=== PATIENT | female | born 1940 | race Caucasian/White ===

== ENCOUNTER 2017-05-14 23:12 | Observation (INO) | payer MEDICARE ==
[~2017-05-14] VITALS: Ht 162.6 cm; Wt 52.2 kg
[2017-05-14 23:44] LABS: BASOPHILS # (AUTO) 0.1 (0.0-0.1); BASOPHILS % 0.6 % (0.0-1.0); EOSINOPHILS # (AUTO) 0.1 (0.0-0.4); EOSINOPHILS % 0.8 % (0.0-6.0); HEMATOCRIT 38.7 % (34.2-44.1); HEMOGLOBIN 12.9 g/dL (12.0-16.0); LYMPHOCYTES % 23.4 % (18.0-39.1); MEAN CORPUSCULAR HEMOGLOBIN 29.7 pg (28-32); MEAN CORPUSCULAR HGB CONC 33.3 g/dL (31-35); MEAN CORPUSCULAR VOLUME 89.2 fL (81-99); MONOCYTES # (AUTO) 0.8 (0.2-0.8); NEUTROPHILS # (AUTO) 5.5 (2.1-6.9); NEUTROPHILS % 65.5 % (38.7-80.0); PLATELET COUNT 269 x10e3/uL (140-360); RED BLOOD COUNT 4.34 x10e6/uL (3.6-5.1); RED CELL DISTRIBUTION WIDTH 13.4 % (11.7-14.4)
[2017-05-14 23:45] LABS: BILIRUBIN,URINE NEGATIVE (NEGATIVE); CLARITY,URINE CLOUDY (CLEAR); COLOR,URINE YELLOW (YELLOW); KETONES,URINE NEGATIVE (NEGATIVE); LEUKOCYTE ESTERASE ,URINE 2+ (NEGATIVE); PROTEIN,URINE DIPSTICK NEGATIVE (NEGATIVE); URINE UROBILINOGEN 0.2 mg/dL (0.2 - 1)
[2017-05-14 23:47] LABS: NITRITE,URINE POSITIVE (NEGATIVE)
[2017-05-14 23:55] LABS: BACTERIA,URINE MANY /HPF; EPITHELIAL CELLS,URINE FEW /LPF; WBC,URINE (MAN) >50 /HPF (0-5)
[2017-05-14 23:59] LABS: ALANINE AMINOTRANSFERASE 16 IU/L (0-55); ALBUMIN 3.8 g/dL (3.5-5.0); ALBUMIN/GLOBULIN RATIO 0.9 (0.8-2.0); ALKALINE PHOSPHATASE 90 IU/L (40-150); AMYLASE 49 U/L (25-125); ANION GAP 14.4 mmol/L (8-16); BLOOD UREA NITROGEN 13 mg/dL (7-26); BUN/CREATININE RATIO 16 (6-25); CALCIUM 9.7 mg/dL (8.4-10.2); CARBON DIOXIDE 22 mmol/L (22-29); CHLORIDE 100 mmol/L (98-107); CREATININE, SERUM 0.82 mg/dL (0.57-1.11); EST GLOMERULAR FILTRATION RATE > 60 ML/MIN (60-); GLUCOSE 100 mg/dL (74-118); LIPASE 44 U/L (8-78); POTASSIUM 3.4 mmol/L (3.5-5.1); SODIUM 133 mmol/L (136-145)
[2017-05-15] MEDS ORDERED: MORPHINE SULFATE 2 MG/ML SYR IV STA (00:41)
[2017-05-15] MEDS ORDERED: ONDANSETRON HCL INJ 2 MG/ML VIAL IV STA (00:41)
--- NOTE | 2017-05-15 02:35 | Diagnostic Imaging Report ---
EXAM: CT ABDOMEN/PELVIS W DATE: 05/15/2017 12:41 AM INDICATION: Metastatic breast cancer, right upper quadrant pain COMPARISON: None TECHNIQUE: The abdomen and pelvis were scanned using a multidetector helical scanner. Coronal and sagittal reformations were obtained. Routine protocol performed. IV Contrast: 100 ml Isovue 370 FINDINGS: LOWER THORAX: Innumerable bilateral pulmonary nodules visualized lung bases, the largest 1.9 cm in the left lower lobe. LIVER/BILIARY: No masses. No ductal dilatation. GALLBLADDER: Unremarkable SPLEEN: Unremarkable PANCREAS: Unremarkable ADRENALS: No nodules KIDNEYS: Symmetric perfusion. No enhancing masses. No hydronephrosis. GI TRACT: No distention, wall thickening or evidence of obstruction. Appendix is not clearly seen, but there is no evidence of acute appendicitis. VESSELS: Moderate atherosclerotic changes. PERITONEUM/RETROPERITONEUM: No free air or fluid LYMPH NODES: No lymphadenopathy REPRODUCTIVE ORGANS/BLADDER: Unremarkable BONES: Bilateral L5 pars defects with grade 1 anterior listhesis of L5 over S1. Patchy sclerotic lesions of L3, L2, visualized T10, posterior vertebral body/elements of T12, T11, L4.. Mild dural enhancement within the lumbar and thoracic spinal canal (image 32, image 2). IMPRESSION: 1. Innumerable bilateral visualized pulmonary metastases and osseous metastases. 2. Dural enhancement within the spinal canal suspicious for metastatic disease/meningeal spread. Correlate with lumbar puncture. 3. No acute abnormality of the abdomen or pelvis to explain symptoms Signed by: Dr Jacqueline Dorman MD on 05/15/2017 2:31 AM
[2017-05-15] MEDS ORDERED: CEFTRIAXONE SOD 1 GM VIAL IM ONE (03:00)
[2017-05-15] MEDS ORDERED: METOPROLOL SUCC50 MG PO (03:01)
[2017-05-15] MEDS ORDERED: MORPHINE SULFATE 2 MG/ML SYR IV PRN (04:15)
[2017-05-15] MEDS: CEFTRIAXONE SOD 1 GM VIAL IV SCH (04:28)
[2017-05-15] MEDS: D5.45%NS/KCL 20MEQ 1,000 ML IV SCH ×2 (04:56→17:25)
[2017-05-15 05:16] VITALS: BP 139/64
[2017-05-15 05:55] VITALS: BP 139/64
[2017-05-15 07:45] VITALS: BP 114/67
--- NOTE | 2017-05-15 10:35 | Diagnostic Imaging Report ---
PROCEDURE:US GALLBLADDER COMPARISON:None. INDICATIONS:RUQ Pain TECHNIQUE: Leslie-scale and color doppler transverse and longitudinal images of the right upper quadrant of the abdomen were obtained. FINDINGS: Liver: Measures 12.7 cm in right mid-clavicular line. Normal echogenicity. No masses. Main portal vein: Measures 9 mm with normal forward flow. Gallbladder: Gallbladder is small in size with echogenic sludge. No wall thickening with the wall measuring 2 mm. Common Bile Duct: Measures 0.3 cm Sonographic Bradshaw's sign: Negative Right kidney: Measures 10.7 x 3.2 x 4.4 cm. Normal echogenicity. No solid masses or hydronephrosis. Pancreas: The visualized portions are unremarkable. Inferior vena cava: Patent Aorta: Atherosclerotic calcification. Ascites: None in the right upper quadrant of the abdomen. CONCLUSION: Small sized gallbladder with biliary sludge. Pavan Thibodeaux D.O. Dictated by: Pavan Thibodeaux D.O. on 05/15/2017 at 10:43 Electronically approved by: Pavan Thibodeaux D.O. on 05/15/2017 at 10:43
[2017-05-15 11:39] VITALS: BP 118/58
[2017-05-15] MEDS ORDERED: SINCALIDE 3 MCG/VIAL INJ ONE (11:50)
[2017-05-15] MEDS ORDERED: POTASSIUM CHLORIDE 20 MEQ TAB CR PO STA (11:55)
[2017-05-15] MEDS: ONDANSETRON HCL INJ 2 MG/ML VIAL IV PRN (13:30)
[2017-05-15 15:24] VITALS: BP 138/73
--- NOTE | 2017-05-15 17:12 | Diagnostic Imaging Report ---
HIDA Scan with Morphine Augmentation Clinical information: 77 F with acute RUQ pain Report: Following the administration of 4.8 of Tc-99m mebrofenin, dynamic images of the abdomen in the anterior projection were obtained through 60 minutes. Morphine sulfate 4 mg was administered via slow IV push and additional images were obtained through 30 minutes. Perfusion to the liver is normal. Extraction of tracer by the liver parenchyma is normal. Tracer appears promptly within the biliary tract. Tracer is seen within the small bowel by 15 minutes. The gallbladder does not fill during the initial 60 minutes of dynamic imaging. Following administration of morphine, the gallbladder also does not fill. Impression: Abnormal hepatobiliary scan 1. Absence of filling of the gallbladder, even following administration of morphine, is compatible with the diagnosis of acute cystic duct obstruction/acute cholecystitis. Signed by: Dr. Sumi Jack M.D. on 05/15/2017 5:08 PM
[2017-05-15] MEDS ORDERED: ACETAMINOPHEN 325 MG TAB PO PRN (17:15)
[2017-05-15] MEDS ORDERED: IOPAMIDOL 370 MG/ML 200 ML INFUS..BTL INJ ONE (17:36)
[2017-05-15] MEDS ORDERED: SODIUM CHLORIDE 0.9% 50ML 50 ML ONE (17:36)
--- NOTE | 2017-05-15 17:54 | History and Physical ---
HISTORY OF PRESENT ILLNESS: She is a 77-year-old female who has past medical history positive for right breast cancer with metastatic lesions in lungs and spine. Status post right mastoidectomy. She underwent chemotherapy and radiation therapy and declared cancer free in 2008. Came here with right upper quadrant pain. She was found to have acute cholecystitis on the HIDA scan. We requested a consult with Dr. Kelechi Mueller for further evaluation and possibility of surgery. REVIEW OF SYSTEMS: CARDIOVASCULAR: No chest pain or palpitation. RESPIRATORY: No shortness of breath and no cough. GASTROINTESTINAL: She has nausea, right upper quadrant pain. No vomiting, no diarrhea. GENITOURINARY: No frequency or dysuria. ALLERGIES: SHE CLAIMS THAT SHE IS NOT ALLERGIC TO ANY MEDICATIONS. SOCIAL HISTORY: She does not smoke and she does not drink. PAST MEDICAL HISTORY: Positive for right breast cancer who is status mastoidectomy with metastatic lesions in lungs and spine. Hypokalemia. Hypertension. Hyponatremia. PLAN OF TREATMENT: Continue IV fluids. Continue with surgical evaluation for possibility of surgical removal of the gallbladder. Abdominal ultrasound showed small size gallbladder with biliary sludge. The blood work showed BMP: Sodium 133, potassium 3.4, chloride 100. CO2 22. BUN 13, creatinine 0.82, glucose 100. CBC: White blood count 8.36, hemoglobin 12.9, hematocrit 38.7, platelet count 269,000. AST 16, total bilirubin 0.4, alkaline phosphatase 90. We are going to continue with the IV fluids country. Replace the potassium. Continue ceftriaxone 1 gram IV piggyback once a day. Morphine 4 mg IV q.4 h. Zofran 4 mg IV q.8 h. As I said, we are going to wait for surgical opinion from Dr. Mueller and also oncology consult with Dr. Longoria. Job#: [id number]
[2017-05-15 20:00] VITALS: BP 135/78
[2017-05-16] VITALS: BP 149/65
[2017-05-16] MEDS: ONDANSETRON HCL INJ 2 MG/ML VIAL IV PRN (01:10)
[2017-05-16 04:00] VITALS: BP 136/80
[2017-05-16] MEDS: CEFTRIAXONE SOD 1 GM VIAL IV SCH (05:32)
[2017-05-16] MEDS: D5.45%NS/KCL 20MEQ 1,000 ML IV SCH (05:32)
[2017-05-16 06:27] LABS: BASOPHILS % 0.3 % (0.0-1.0); EOSINOPHILS % 0.3 % (0.0-6.0); HEMATOCRIT 36.8 % (34.2-44.1); HEMOGLOBIN 12.4 g/dL (12.0-16.0); LYMPHOCYTES # (AUTO) 1.6 (1.0-3.2); LYMPHOCYTES % 21.6 % (18.0-39.1); MEAN CORPUSCULAR HEMOGLOBIN 29.8 pg (28-32); MEAN CORPUSCULAR HGB CONC 33.7 g/dL (31-35); MEAN CORPUSCULAR VOLUME 88.5 fL (81-99); MONOCYTES # (AUTO) 0.7 (0.2-0.8); MONOCYTES % 9.6 % (4.4-11.3); NEUTROPHILS % 67.8 % (38.7-80.0); PLATELET COUNT 248 x10e3/uL (140-360); RED BLOOD COUNT 4.16 x10e6/uL (3.6-5.1); RED CELL DISTRIBUTION WIDTH 13.3 % (11.7-14.4)
[2017-05-16 06:56] LABS: ALANINE AMINOTRANSFERASE 14 IU/L (0-55); ALBUMIN 3.1 g/dL (3.5-5.0); ALBUMIN/GLOBULIN RATIO 0.8 (0.8-2.0); ALKALINE PHOSPHATASE 87 IU/L (40-150); ANION GAP 12.5 mmol/L (8-16); BLOOD UREA NITROGEN 8 mg/dL (7-26); BUN/CREATININE RATIO 10 (6-25); CALCIUM 9.4 mg/dL (8.4-10.2); CARBON DIOXIDE 23 mmol/L (22-29); CHLORIDE 107 mmol/L (98-107); CREATININE, SERUM 0.78 mg/dL (0.57-1.11); EST GLOMERULAR FILTRATION RATE > 60 ML/MIN (60-); GLUCOSE 135 mg/dL (74-118); POTASSIUM 4.5 mmol/L (3.5-5.1); SODIUM 138 mmol/L (136-145)
[2017-05-16 08:22] VITALS: BP 134/67
[2017-05-16] MEDS ORDERED: METOPROLOL SUCCINATE 50 MG TAB XL PO SCH (09:00)
[2017-05-16] MEDS ORDERED: MORPHINE SULFATE 5 MG/ML VIAL IV PRN (10:45)
[2017-05-16] MEDS ORDERED: METRONIDAZOLE 500MG/NS 100ML 100 ML IV SCH (14:00)
--- NOTE | 2017-05-16 21:07 | Discharge Summary ---
HISTORY OF PRESENT ILLNESS: A 77-year-old female with past medical history positive for breast cancer and multiple metastatic lesions in the spine and the lungs. Came here with right upper quadrant pain. She was found to have acute cholecystitis diagnosed on a HIDA scan and patient was referred to Dr. Kelechi Mueller for surgery. She was placed n.p.o. after midnight. The patient is very upset because she has not been able to eat and because she has not been able to communicate with the surgeon yet, so she wants to leave against medical advice. She is going to try [facility] where she has her own oncologist. I explained to the patient and the family that the surgery can be done here, but they are very upset and they want to leave against medical advice. PHYSICAL EXAMINATION HEART: Regular rhythm. No murmur. No extra sounds. LUNGS: Clear bilaterally. ABDOMEN: Soft. She has right upper quadrant pain. FINAL IMPRESSION: 1. Acute cholecystitis. 2. Right breast cancer with metastatic lesions in the spine and also the lungs. 3. Hypertension. 4. Urinary tract infection. The patient is on ceftriaxone 1 gram IV piggyback daily. She is on Flagyl 500 mg IV piggyback q.8 hours. Metoprolol 50 mg daily. She is on morphine 4 mg IV q.4 hours as needed. As I said, the patient is upset because she has not been able to talk with the surgeon and she wants to leave against medical advice. I recommended the patient and the family to get all the records so that the transition to the facility can be easier. So, they are going to [facility]. They are aware of the consequences of leaving against medical advice including perforation of the gallbladder, sepsis, etc. VANESSA VIRK MD Job#: [id number]
== END 2017-05-16 12:53 | disposition left against medical advice (07) ==
LOC: ER 23:12 → ERHOLD 05-15 04:53 → IMCU 05-15 04:55
PROVIDERS: ADMIT Internal Medicine; ATTEND Internal Medicine
DX: K81.0 Acute cholecystitis (principal); N39.0 Urinary tract infection, site not specified; C50.911 Malignant neoplasm of unspecified site of right female breast; C78.02 Secondary malignant neoplasm of left lung; C78.01 Secondary malignant neoplasm of right lung; C79.51 Secondary malignant neoplasm of bone; E87.6 Hypokalemia; I10 Essential (primary) hypertension; E87.1 Hypo-osmolality and hyponatremia; Z90.11 Acquired absence of right breast and nipple
CPT/HCPCS: 36415 ×3; 74177; 76705; 78227; 80053 ×2; 81001; 82150; 83690; 83735; 85025 ×2; 87086; 87186; 93971; 96360; 96374; A9537; G0378 ×2; J0696 ×2; J2270; J2405 ×2; J2805; Q9967